=== PATIENT | female | born 1980 | race Caucasian/White ===

== ENCOUNTER 2025-04-13 20:57 | Emergency (ER) | payer MEDICAID ==
[~2025-04-13] VITALS: Ht 160 cm; Wt 102.3 kg
[~2025-04-13 20:57] MED LIST: NO HOME MEDS
[2025-04-13 21:04] VITALS: TEMP 97.7
--- NOTE | 2025-04-13 21:43 | RADIOLOGY REPORT ---
EXAMINATIONS: 3 views of the left foot - 1st digit CLINICAL HISTORY: TOE PAIN COMPARISON: None Findings and impression: Comminuted, minimally displaced fracture of the distal aspect of the 1st proximal phalanx with extens ion into the interphalangeal joint space.
--- NOTE | 2025-04-13 22:28 | Physician Documentation ---
History of Present Illness ~ Chief Complaint: Toe pain Stated Complaint: TOE PAIN Time Seen by MD: 21:16 OK to notify your PCP?: Yes Primary Medical Doctor: none Source: patient Mode of Arrival: POV Exam Limitations: no limitations HPI 45-year-old female presents with left greater toe pain after kicking a concrete curb on accident when running 2 days ago. She reports taking ibuprofen last night for the pain. She is able to walk with her left foot but not able to bear weight with that toe. There is bruising and swelling around the PIP joint. Medication Reconciliation Allergies: Coded Allergies: No Known Allergies (Unverified , 03/26/14) Miscellaneous Medications Home Med List (No Home Medications), (Reported) Past Medical History Past Medical History: No Pertinent History Past Surgical History: no surgical history Alcohol Use: None Drug Use: marijuana Lives In: Home Occupation: student Review of Systems All Other Systems at this time: Reviewed and Negative Physical Exam Vital Signs: RN Vital Signs have been reviewed: Yes, Temperature: 97.7, Source: Temporal, Heart Rate: 98, Respiratory Rate: 18, BP: 126/82, Pulse Oximetry: 97, Weight: 102.350 Oxygen Flow Rate: 0 Pulse Oximetry Reflects: adequate oxygenation Physical Exam General: Alert, no apparent distress. HEENT: PERRL, EOMI, no injection, moist mucous membranes. Neck: Full range of motion. Respiratory: Lungs clear, no respiratory distress. Chest: No accessory muscle use. Cardiovascular: Regular rate and rhythm, no murmurs. Gastrointestinal: Soft, nontender, nondistended. Bowels sounds present. Extremities: Normal range of motion, no deformity in all extremities except for left greater toe. Good CSM in left greater toe, edema, ecchymosis and decreased range of motion. Neurologic: Oriented x4. Psychiatric: Normal mood and affect. Skin: Normal color, warm and dry. No edema, no ecchymosis. Progress Results/Orders Reviewed/noted all lab results: Yes Results/Orders Orders - YADI MAGUIRE Ortho Orders (04/13/25 ) Completed Orders - YADI MAGUIRE Hydrocodone/Apap 5/325mg Tab (Hebron 5/32 (04/13/25 22:15) Naproxen Tablet (Naprosyn Tablet) (04/13/25 22:15) Vital Signs 5/31/25 21:04 Temp 97.7 Pulse 98 Resp 18 B/P (MAP) 126/82 Pulse Ox 97 O2 Flow Rate 0 EKG/XRAY/CT/US/VASC/MRI Bone/Soft Tissue X-Ray (Ext.) : Additional Comment left toes x-ray as interpreted by me; no joint effusion, no soft tissue swelling, no dislocation, or foreign body. +Comminuted, minimally displaced fracture of the distal aspect of the 1st proximal phalanx with extension into the interphalangeal joint space. Medical Decision Making Additional info obtained from: old records Findings 45-year-old female with left greater toe pain after kicking a curb 2 days ago. X-ray shows a comminuted, minimally displaced fracture of the distal aspect of the 1st proximal phalanx with extension into the interphalangeal joint space. Discussed this case with Dr. Uribe and he recommends placing a post-op shoe. Postop shoe placed to left foot. Hebron and naproxen given in department. Prescription for naproxen and Hebron sent to her pharmacy. She will follow up with her primary care provider in the next 3 days and return back here for any new or worsening symptoms. She should rest, ice, elevate her left foot. General Diff Dx:Considerations: Include: Contusion, Hematoma, Neurovascular injury, Sprain Departure Disposition: 01 HOME / SELF CARE / HOMELESS Impression: Primary Impression: Fracture of distal phalanx of great toe Condition: Stable Discharge Instructions: Toe Fracture, [id number] Additional Instructions: Postop shoe placed to left foot. Hebron and naproxen given in department. Prescription for naproxen and Hebron sent to her pharmacy. She should follow up with her primary care provider in the next 3 days and return back here for any new or worsening symptoms. She should rest, ice, elevate her left foot and use the naproxen 1st before using the Hebron only if naproxen isn't working. She has been placed off of work for the next 7 days and placed on light duty for 3 weeks after that to allow for healing. Departure Forms: Excuse form Work or School Excuse beginning now through the following date: Apr 22, 2025 May Return but still avoid physical Activity from now until: May 13, 2025 Referrals: NO PRIMARY CARE PROVIDER (PCP) Prescriptions Hydrocodone Bit/Acetaminophen (Hydrocodon-Acetaminophn 10-325 tablet) 10mg- 325mg Tablet 1 TAB PO TID PRN PRN for pain for 5 Days, #15 TAB Prov: YADI MAGUIRE DIETETIC ASSISTANT 04/13/25 Naproxen (Naproxen) 500 Mg Tablet 1 TAB PO Q12H, #20 TAB Prov: YADI MAGUIRE DIETETIC ASSISTANT 04/13/25 Education Educated: Patient Educated regarding: diagnosis, treatment, prognosis, need for follow up Signature Scribe Signature: . Attestation: Scribed for Yadi Maguirep by Yadi Maguire - DEMETRIO . 04/13/25 22:30 YADI MAGUIREP April 13, 2025 22:28
[2025-04-13] MEDS ORDERED: HYDR-3972 PO (22:32)
[2025-04-13] MEDS ORDERED: NAPR-56 PO (22:32)
[2025-04-13] MEDS: HYDROcodone/acetaminophen 5mg/325mg tablet PO ONE (22:50)
[2025-04-13] MEDS: naproxen 500mg tablet PO ONE (22:50)
[2025-04-13 22:59] VITALS: BP 138/78; PULSE 78; RESP 18; O2SAT 99
== END 2025-04-13 23:54 | disposition home or self-care (01) ==
LOC: ER 20:58
DX: S92.422A Displaced fracture of distal phalanx of left great toe, initial encounter for closed fracture (principal); F12.90 Cannabis use, unspecified, uncomplicated; W22.09XA Striking against other stationary object, initial encounter; Y93.02 Activity, running; Y92.89 Other specified places as the place of occurrence of the external cause; Y99.8 Other external cause status
CPT/HCPCS: 73660; 99283; L3260

== ENCOUNTER 2025-04-29 11:38 | Emergency (ER) | payer MEDICAID ==
[~2025-04-29] VITALS: Ht 160 cm; Wt 87.5 kg
[~2025-04-29 11:38] MED LIST changes: +NAPR-56 PO
[2025-04-29 11:43] VITALS: BP 129/80; PULSE 93; RESP 15; O2SAT 99
[2025-04-29 16:46] VITALS: TEMP 97.5
== END 2025-04-29 16:47 | disposition left against medical advice (07) ==
LOC: ER 11:39
DX: Z00.8 Encounter for other general examination (principal); Z53.21 Procedure and treatment not carried out due to patient leaving prior to being seen by health care provider

== ENCOUNTER 2025-10-21 18:27 | Emergency (ER) | payer OTHER ==
[~2025-10-21] VITALS: Ht 160 cm; Wt 96.6 kg
[~2025-10-21 18:27] MED LIST changes: -NAPR-56 PO
--- NOTE | 2025-10-21 19:24 | RADIOLOGY REPORT ---
CLINICAL INDICATION: PAIN AFTER FALL RIGHT 5TH DIGIT TECHNIQUE: 4 radiographic views of the right fingers were obtained. Comparison: None FINDINGS/IMPRESSION: There is acute mildly displaced fracture through the base of the 5th digit distal phalanx with intra-articular extension.
--- NOTE | 2025-10-21 23:00 | Physician Documentation ---
History of Present Illness ~ Chief Complaint: Finger pain Stated Complaint: RIGHT FINGER PAIN Time Seen by MD: 22:42 Primary Medical Doctor: none HPI Very pleasant 45-year-old female that presents to the emergency department for evaluation of right pinky pain that she sustained at approximately 0 2 in the morning when she fell while walking up the stairs. Patient reports significant pain inability to bend the finger that has been progressively worsened over the last several hours. Patient denies hitting her head any loss of consciousness any head neck or back pain at this time. No other symptoms reported at this time. Tetanus within 5 years: No (UNK) Medication Reconciliation Allergies: Coded Allergies: No Known Allergies (Unverified , 10/21/25) Miscellaneous Medications Home Med List (No Home Medications), (Reported) Past Medical History Past Medical History: No Pertinent History Past Surgical History: no surgical history Alcohol Use: None Drug Use: marijuana Lives In: Home Occupation: student Review of Systems ROS As stated above in the HPI, otherwise all systems are reviewed and negative. Physical Exam Vital Signs: Temperature: 98.6, Source: Oral, Heart Rate: 104, Respiratory Rate: 17, BP: 133/89, Pulse Oximetry: 97, Weight: 96.640 Oxygen Flow Rate: 0 Physical Exam VITALS: Reviewed and as above. GENERAL: Alert, no apparent distress. MUSCULOSKELETAL: Edema noted to the 5th digit on the right hand, reduced range of motion during examination, sensation intact, cap refill appropriate. SKIN: Warm and dry, no rash NEURO: Oriented x4, No motor or sensory deficit PSYCH: Normal mood and affect, no agitation Progress Results/Orders Results/Orders Vital Signs 10/21/25 18:30 Temp 98.6 Pulse 104 Resp 17 B/P (MAP) 133/89 Pulse Ox 97 O2 Flow Rate 0 Medical Decision Making Additional information obtaine: other Findings Chief Complaint: Right fifth finger pain following fall History of Present Illness: 45-year-old female presented to the emergency department with right fifth finger pain sustained at approximately 2:00 AM after falling while walking up stairs. Patient reports significant pain and inability to bend the finger that has progressively worsened over several hours. Patient denies head trauma, loss of consciousness, or neck/back pain. Physical Examination: Physical examination revealed deformity, swelling, and bruising of the right fifth finger with loss of function and inability to flex the digit. Diagnostic Studies: Radiographic imaging (anteroposterior, lateral, and oblique views) confirmed fracture of the proximal interphalangeal (PIP) joint of the right fifth finger. Medical Decision Making: Number and Complexity of Problems Addressed: Moderate complexity - acute fracture of the proximal interphalangeal joint requiring evaluation for stability, alignment, and need for specialist referral. Amount and Complexity of Data Reviewed: Radiographic imaging reviewed and interpreted. Fracture demonstrates acceptable alignment without significant angulation (>10 degrees), displacement, or malrotation that would necessitate immediate surgical intervention. No evidence of instability or involvement of gr eater than 30% of the intra-articular surface that would require urgent hand surgery referral. Risk of Complications: Moderate risk. Phalangeal fractures carry risk of finger stiffness, loss of range of motion, and functional deficits if not appropriately managed. However, this fracture pattern appears amenable to conservative management with splint immobilization. [3] Patient counseled on importance of strict splint compliance and timely orthopedic follow-up to assess healing and prevent complications. Diagnosis: Fracture of the proximal interphalangeal joint, right fifth finger Treatment Plan: Finger splint applied for immobilization Immobilization for 4-6 weeks as appropriate for uncomplicated middle and proximal phalanx fractures Pain management with acetaminophen and ibuprofen as needed Elevation of injured extremity to reduce swelling Activity modification to avoid displacement Disposition: Discharged home in stable condition with appropriate immobilization and pain control. Follow-Up: Primary care provider follow-up as scheduled Orthopedics at [facility] ([phone]) for reassessment of fracture alignment and healing Patient instructed to return immediately if develops signs of instability, increasing deformity, neurovascular compromise, or inadequate pain control Patient Education: Patient counseled on importance of maintaining splint immob ilization, elevation, and attending all follow-up appointments. Patient verbalized understanding of discharge instructions and follow-up plan. General Diff Dx:Considerations: Include: Abrasion, Contusion, Fracture, Hematoma, Laceration, Malunion, Neurovascular injury, Open fracture, Sprain, Ulcer, Other Shoulder Diff Dx:Consideration: Include: AC separation, Adhesive capsulitis, Arthritis, Bicipital tendonitis, Calcific tendonitis, Cervical disc disease, Contusion, Dislocation, Fracture-humerus, Fracture-scapula, Fracture-clavicle, GB disease, Hematoma, Impingement syndrome, Myocardial infarction, Neurovascular injury, Open fracture-humerus, Open fracture-scapula, Open fracture-clavicle, Rotator cuff injury, SC dislocatoin, Sprain, Subacromial bursitis, Other Elbow Diff Dx:Considerations: Include: Abrasion, Arthritis, Contustion, DJD, Fracture-humerus, Fracture-radial head, Fracture-radius, Fracture-ulna, Gout, Hematoma, Laceration, Neurovascular injury, Olecranon bursitis, Open fracture, Osteomyelitis, Radial head subluxation, Rheumatoid arthritis, Septic, Sprain, Ulcer, Other Wrist Diff Dx:Considerations: Include: Abrasion, Arthritis, DJD, Gout, Rheumatoid, Septic, Carpal tunnel snydrome, Contusion, Dislocation, Fracture- carpal, Fracture-radius, Fracture-ulna, Ganglion, Laceration, Neurovascular i njury, Open fracture, Strain, Other Hand Diff Dx:Considerations: Include: Abrasion, Arthritis, Contusion, DJD, Felon, Fracture-carpal, Fracture-metacarpal, Fracture-phalynx, Fracture-radius, Fracture-ulna, Gout, Hematoma, Herpetic liz, Laceration, Neurovascular injury, Open fracture, Paronychia, Rheumatoid arthritis, Septic, Sprain, Subungual hematoma, Tenosynovitis, Volar plate injury, Cellulitis, Malunion, Other Finger Diff Dx:Considerations: Include: Abrasion, Cellulitis, Contusion, Dislocation, Fracture, Hematoma, Laceration, Neurovascular injury, Open fracture, Subungual hematoma, Other Departure Disposition: 01 HOME / SELF CARE / HOMELESS Impression: Primary Impression: Fracture of metacarpal bone Condition: Stable Discharge Instructions: Fracture, Finger Additional Instructions: Diagnosis: Fracture of the right fifth finger (pinky finger) at the middle joint What Happened: You broke your right pinky finger when you fell on the stairs. The bone broke at the middle joint of your finger. An X-ray confirmed the fracture, and a splint was placed on your finger to keep it still while it heals. Taking Care of Your Finger at Home: Keep the splint on at all times. Your finger needs to stay still for 4 to 6 weeks to heal properly. Do not remove the splint unless your doctor tells you to. Getting the splint wet can damage it, so keep it dry when bathing or washing your hands. Elevate your hand. Keep your injured hand raised above the level of your heart as much as possible, especially for the first few days. This helps reduce swelling and pain. You can prop your hand on pillows when sitting or lying down. Move your other fingers. While keeping your pinky finger still in the splint, gently move your other fingers several times a day to prevent stiffness. Pain Management: Take acetaminophen (Tylenol) and ibuprofen (Advil or Motrin) as needed for pain. These medications are safe to use together and work well for bone pain. Follow the directions on the bottle. Ibuprofen also helps reduce swelling. Activities to Avoid: Do not use your injured hand for heavy lifting, gripping, or any activity that could bump or move your finger Avoid sports and activities that could injure your finger again Do not try to bend or straighten your pinky finger Warning Signs - Call Your Doctor or Go to the Emergency Department If: Your fingers become cold, blue, or numb You have severe pain that does not improve with medication You notice increased swelling, redness, or warmth around the injury You develop a fever The splint becomes loose, damaged, or falls off Your finger looks crooked or more deformed than when you left the hospital Follow-Up Appointments: You must keep your follow-up appointments. Your doctor needs to check that your finger is healing correctly. If the bone heals in the wrong position, you may have permanent problems with finger movement. Primary care provider: As scheduled Orthopedics at [facility]: Call [phone] to schedule if not already scheduled At your follow-up visits, your doctor will take new X-rays to check how your bone is healing and may adjust your treatment plan. What to Expect: Most finger fractures heal well with proper care. However, finger stiffness is common after these injuries, even with appropriate treatment. Your doctor will tell you when it is safe to start moving your finger again and may recommend exercises to help restore movement. Referrals: NO PRIMARY CARE PROVIDER (PCP) Education Educated: Patient Educated regarding: diagnosis, treatment, need for follow up Signature Scribe Signature: A Attestation: Scribed for Cuca Dozier by SHELLEY Elise . 10/21/25 23:09 CUCA DOZIER Oct 21, 2025 23:00
[2025-10-21] MEDS: HYDROcodone/acetaminophen 5mg/325mg tablet PO ONE (23:07)
[2025-10-21 23:30] VITALS: BP 130/86; PULSE 99; RESP 18; TEMP 98.6; O2SAT 99
== END 2025-10-21 23:31 | disposition home or self-care (01) ==
LOC: ER 18:28
DX: S62.396A Other fracture of fifth metacarpal bone, right hand, initial encounter for closed fracture (principal); W10.9XXA Fall (on) (from) unspecified stairs and steps, initial encounter; Y93.01 Activity, walking, marching and hiking; Y92.89 Other specified places as the place of occurrence of the external cause; Y99.8 Other external cause status
CPT/HCPCS: 29130; 73140; 99283